=== PATIENT | female | born 1960 | race African-American/Black ===

== ENCOUNTER 2018-11-02 23:57 | Emergency (ER) | payer MEDICARE, MEDICAID ==
[~2018-11-02] VITALS: Ht 170.2 cm; Wt 80.0 kg
[2018-11-03] MEDS ORDERED: MethylPREDNISolone SOD SUCC 125 MG/2 ML VIAL IM ONE (04:15)
[2018-11-03] MEDS ORDERED: KETOROLAC TROMETHAMINE 60 MG/2 ML VIAL IM ONE (04:15)
[2018-11-03 04:36] LABS: BASOPHILS % (AUTO) 0.7 % (0.0-2.0); EOSINOPHILS % (AUTO) 6.8 % (1.0-6.0); HEMATOCRIT 40.4 % (36-46); HEMOGLOBIN 12.9 g/dL (12.0-16.0); LYMPHOCYTES # (AUTO) 1.8 K/uL (1.0-4.8); LYMPHOCYTES % (AUTO) 32.8 % (22.0-44.0); MEAN CORPUSCULAR HEMOGLOBIN 31.2 pg (26.0-34.0); MEAN CORPUSCULAR VOLUME 98 fL (80-100); MONOCYTES # (AUTO) 0.6 K/uL (0.1-1.0); MONOCYTES % (AUTO) 10.3 % (2.0-9.0); NEUTROPHILS # (AUTO) 2.6 K/uL (1.8-7.7); NEUTROPHILS % (AUTO) 49.4 % (40.0-70.0); PLATELET COUNT (AUTO) 270 K/uL (150-450); RED BLOOD CELL COUNT(AUTO) 4.14 MIL/uL (4.00-5.20); RED CELL DISTRIBUTION WIDTH 14.7 % (11.5-14.5)
[2018-11-03 04:46] LABS: CREATININE 1.32 mg/dL (0.60-1.30); POTASSIUM 3.3 mmol/L (3.5-5.1)
[2018-11-03 04:53] LABS: ALBUMIN 3.2 g/dL (3.4-5.0); BILIRUBIN,TOTAL 0.2 mg/dL (0.1-1.0); TOTAL PROTEIN, SERUM 7.8 g/dL (6.4-8.2)
[2018-11-03 05:12] LABS: PROTHROMBIN TIME 10.7 SEC (9.4-11.6)
[2018-11-03 07:35] VITALS: BP 154/87
[2018-11-03] MEDS ORDERED: ACETAMINOPHEN 325 MG TABLET PO ONE (07:45)
== END 2018-11-03 11:00 | disposition home or self-care (01) ==
LOC: EMS 11-03
DX: M54.31 Sciatica, right side (principal); R60.0 Localized edema; F10.10 Alcohol abuse, uncomplicated; Y90.3 Blood alcohol level of 60-79 mg/100 ml
CPT/HCPCS: 36415; 80053; 85025; 85379; 85610; 85730; 93970; 96372; 99284; G0480; J1885; J2930

== ENCOUNTER 2018-11-13 03:27 | Emergency (ER) | payer MEDICARE, MEDICAID ==
[~2018-11-13] VITALS: Ht 170.2 cm; Wt 79.5 kg
[2018-11-13] MEDS ORDERED: ADDE10 PO (03:35)
[2018-11-13] MEDS ORDERED: TRAM50TA4 PO (03:35)
[2018-11-13] MEDS ORDERED: BP MED PO (03:35)
[2018-11-13] MEDS ORDERED: BUPIVACAINE 0.25%/EPI 1:200,000/PF 10 ML VIAL INJ ONE (04:15)
[2018-11-13 04:18] LABS: BASOPHILS % (AUTO) 0.4 % (0.0-2.0); EOSINOPHILS % (AUTO) 5.1 % (1.0-6.0); HEMATOCRIT 41.4 % (36-46); HEMOGLOBIN 13.3 g/dL (12.0-16.0); LYMPHOCYTES # (AUTO) 1.7 K/uL (1.0-4.8); LYMPHOCYTES % (AUTO) 25.6 % (22.0-44.0); MEAN CORPUSCULAR HEMOGLOBIN 31.3 pg (26.0-34.0); MEAN CORPUSCULAR HGB CONC 32.2 G/dL (31.0-37.0); MEAN CORPUSCULAR VOLUME 97 fL (80-100); MONOCYTES # (AUTO) 0.8 K/uL (0.1-1.0); MONOCYTES % (AUTO) 11.7 % (2.0-9.0); NEUTROPHILS # (AUTO) 3.7 K/uL (1.8-7.7); NEUTROPHILS % (AUTO) 57.2 % (40.0-70.0); PLATELET COUNT (AUTO) 271 K/uL (150-450); RED BLOOD CELL COUNT(AUTO) 4.26 MIL/uL (4.00-5.20); RED CELL DISTRIBUTION WIDTH 14.9 % (11.5-14.5)
[2018-11-13 04:27] LABS: ANION GAP 10 mmol/L (8-16); CALCIUM, TOTAL 8.9 mg/dL (8.8-10.5); CARBON DIOXIDE 27 mmol/L (22-29); CHLORIDE 106 mmol/L (98-107); CREATININE 1.63 mg/dL (0.60-1.30); GLOMERULAR FILTR. RATE CALC 39 mL/min (>60); GLUCOSE,RANDOM 87 mg/dL (70-110); POTASSIUM 3.1 mmol/L (3.5-5.1); SODIUM SERUM 143 mmol/L (136-145); UREA NITROGEN, BLOOD 19 mg/dL (7-18)
[2018-11-13] MEDS ORDERED: CYCLOBENZAPRINE HCL 10 MG TABLET PO ONE (04:30)
[2018-11-13] MEDS ORDERED: KETOROLAC TROMETHAMINE 30 MG/ML VIAL IM ONE (04:30)
[2018-11-13 04:34] LABS: ALANINE AMINOTRANSFERASE 23 U/L (12-78); ALBUMIN 3.5 g/dL (3.4-5.0); ALKALINE PHOSPHATASE 89 U/L (46-116); ASPARTATE AMINOTRANSFERASE 14 U/L (15-37); BILIRUBIN,TOTAL 0.3 mg/dL (0.1-1.0); TOTAL PROTEIN, SERUM 7.4 g/dL (6.4-8.2)
[2018-11-13] MEDS ORDERED: POTASSIUM CHLORIDE 20 MEQ ER TABLET PO ONE (05:30)
[2018-11-13 09:45] VITALS: BP 137/72
== END 2018-11-13 11:01 | disposition home or self-care (01) ==
LOC: EMS 03:29
DX: M54.30 Sciatica, unspecified side (principal); E87.6 Hypokalemia; G89.29 Other chronic pain; M54.9 Dorsalgia, unspecified; F32.9 Major depressive disorder, single episode, unspecified; I10 Essential (primary) hypertension; F17.210 Nicotine dependence, cigarettes, uncomplicated; Z79.899 Other long term (current) drug therapy
CPT/HCPCS: 36415; 80053; 85025; 96372; 99283; G0480; J1885